=== PATIENT | male | born 1970 ===

== ENCOUNTER → 2018-08-28 23:10 | Outpatient (REF) | payer BC, SELFPAY ==
[2018-08-29 01:59] LABS: Basophils Absolute Auto 100 /uL (0-100); Basophils Percent Auto 0.7 % (0-2); Eosinophils Absolute Auto 100 /uL (0-450); Eosinophils Percent Auto 1.5 % (2-4); Hemoglobin 18.8 g/dL (13.5-17.5); Lymphocytes Absolute Auto 2500 /uL (1100-4500); Lymphocytes Percent Auto 31.9 % (25-40); Mean Corpuscular HGB Conc 33.6 % (30-36); Mean Corpuscular Hemoglobin 31.4 PG (26-34); Mean Corpuscular Volume 93.6 fL (80-100); Monocytes Absolute Auto 900 /uL (0-900); Monocytes Percent Auto 11.8 % (3-14); Neutrophils Absolute Auto 4200 /uL (1500-7000); Neutrophils Percent Auto 54.1 % (50-75); Platelet Count 275 X10^3/uL (150-400); Red Blood Cell Count 5.98 X10^6/uL (4.5-5.9); Red Cell Distribution Width 12.9 % (11.6-14.8); White Blood Cell Count 7.8 X10^3/uL (4.5-11.0)
[2018-08-29 02:06] LABS: Add Manual Diff / Slide Review SLIDE REVIEW
[2018-08-29 07:58] LABS: RBC Morphology Normal Morphology
[2018-08-30 15:45] LABS: Sex Hormone Binding Globulin 38 nmol/L (10-50)
[2018-08-31 18:47] LABS: HIV Ag/Ab, 4th Gen Nonreactive (Nonreactive)
[2018-09-01 21:35] LABS: Estrogen 303.7 pg/mL (60-190)
[2018-09-03 03:59] LABS: Testosterone Free 448.1 pg/mL (35.0-155.0); Testosterone Total 2013 ng/dL (250-1100)
[2018-09-04 09:00] LABS: C.trachomatis RNA NOT DETECTED; N.gonorrhoeae RNA NOT DETECTED
== END ==
LOC: LAB 23:10
PROVIDERS: Visit Provider Naturopath
DX: E29.1 Testicular hypofunction (principal); Z11.3 Encounter for screening for infections with a predominantly sexual mode of transmission
CPT/HCPCS: 36415; 82672; 84153; 84270; 84402; 84403; 85025; 86703; 87491; 87591

== ENCOUNTER → 2018-09-10 20:54 | Outpatient (REF) | payer BC, SELFPAY ==
[2018-09-10 22:09] LABS: Alanine Aminotransferase 93 IU/L (21-72); Albumin 4.1 g/dL (3.5-5.0); Albumin Globulin Ratio 1.5 (1.0-2.8); Alkaline Phosphatase 93 U/L (38-126); Aspartate Aminotransferase 56 IU/L (17-59); BUN Creatinine Ratio 12.2 (6-22); Bilirubin Total 0.6 mg/dL (0.2-1.3); Blood Urea Nitrogen 11 mg/dL (9-20); Calcium 9.3 mg/dL (8.4-10.2); Carbon Dioxide 27 mmol/L (22-32); Chloride 100 mmol/L (98-107); Estimated Glomerular Filt Rate > 60.0 mL/min (>60); Globulin 2.8 g/dL (1.7-4.1); Glucose 121 mg/dL (70-100); HEMOLYSIS < 15 (0-50); Sodium 138 mmol/L (137-145); Total Protein 6.9 g/dL (6.3-8.2)
[2018-09-10 22:42] LABS: Hepatitis B Surface Antigen NEGATIVE s/c (NEGATIVE)
[2018-09-10 22:43] LABS: Ferritin 98.4 ng/mL (17.9-464)
[2018-09-10 23:02] LABS: Hep C Virus Ab w/Reflex Quant NEGATIVE s/c (NEGATIVE)
[2018-09-12 13:36] LABS: HSV 2 IGG AB < 0.90 index (< 0.90)
[2018-09-12 13:38] LABS: Hepatitis B Core Antibody Nonreactive (Nonreactive); Hepatitis B Surf AB Imm QUANT 43 mIU/mL (> 9)
[2018-09-14 06:58] LABS: RPR Screen Nonreactive (Nonreactive)
== END ==
LOC: LAB 20:54
PROVIDERS: Visit Provider Physician Assistant
DX: Z11.3 Encounter for screening for infections with a predominantly sexual mode of transmission (principal); R94.5 Abnormal results of liver function studies
CPT/HCPCS: 36415; 80053; 82728; 86317; 86592; 86695; 86696; 86704; 86803; 87340

== ENCOUNTER → 2018-10-02 23:21 | Outpatient (REF) | payer BC, SELFPAY ==
[2018-10-03 00:15] LABS: Alanine Aminotransferase 67 IU/L (21-72); Albumin 4.1 g/dL (3.5-5.0); Albumin Globulin Ratio 1.5 (1.0-2.8); Alkaline Phosphatase 69 U/L (38-126); Aspartate Aminotransferase 45 IU/L (17-59); Bilirubin Total 0.9 mg/dL (0.2-1.3); Blood Urea Nitrogen 13 mg/dL (9-20); Calcium 9.5 mg/dL (8.4-10.2); Carbon Dioxide 30 mmol/L (22-32); Chloride 100 mmol/L (98-107); Estimated Glomerular Filt Rate > 60.0 mL/min (>60); Globulin 2.7 g/dL (1.7-4.1); Glucose 157 mg/dL (70-100); HEMOLYSIS < 15 (0-50); Potassium 4.5 mmol/L (3.4-5.1); Sodium 138 mmol/L (137-145); Total Protein 6.8 g/dL (6.3-8.2)
[2018-10-03 02:17] LABS: Hemoglobin A1C% w Est Avg Glu 5.9 % (4.0-6.0)
== END ==
LOC: LAB 23:21
PROVIDERS: Visit Provider Naturopath
DX: G47.33 Obstructive sleep apnea (adult) (pediatric) (principal); R53.83 Other fatigue; R94.5 Abnormal results of liver function studies; R10.10 Upper abdominal pain, unspecified
CPT/HCPCS: 36415; 80053; 83036